=== PATIENT | female | born 1990 | race Asian ===

== ENCOUNTER → 2020-10-21 12:33 | Outpatient (CLI) | payer OTHER, SELFPAY ==
--- NOTE | 2020-10-21 12:40 | DI.US.S_ITS ---
ULTRASOUND OF RIGHT BREAST AND AXILLA: 10/21/2020 CLINICAL: Palpable right breast lump. Comparison is made to exam dated: 10/21/2020 [facility]. Color flow ultrasound of the right breast axilla was performed. Freeman scale images of the real-time examination were reviewed. There is a benign oval normal lymph node with a circumscribed margin in the right axilla. This oval normal lymph node displays fatty hilum. This correlates as palpated. IMPRESSION: BENIGN There is no sonographic evidence of malignancy. The oval normal lymph node is benign. This exam was interpreted at Station ID: [id number]. Electronically Signed By: Ruiz young/chelly:10/21/2020 14:55:12 Ultrasound BI-RADS: 2 Benign
--- NOTE | 2020-10-21 12:40 | DI.US.S_ITS ---
LIMITED ULTRASOUND OF LEFT BREAST- POST-RADIATION THERAPY: 10/21/2020 CLINICAL: Palpable left breast lump. Comparison is made to exam dated: 10/21/2020 [facility]. Real-time ultrasound of the left breast 12-1 o'clock region was performed. Freeman scale images of the real-time examination were reviewed. Dense fibroglandular tissue but no mass is identifed in the patient-indicated palpable area of concern. IMPRESSION: NEGATIVE Dense fibroglandular tissue but no mass is identifed in the patient-indicated palpable area of concern. Recommend clinical follow up. There is no sonographic evidence of malignancy. Follow-up with ACR/ACS guidelines. This exam was interpreted at Station ID: [id number]. Electronically Signed By: Ruiz young/chelly:10/21/2020 14:58:10 letter sent: Clinical Evaluation Ultrasound BI-RADS: 1 Negative
--- NOTE | 2020-10-21 12:40 | DI.MG.S_ITS ---
BILATERAL DIGITAL DIAGNOSTIC MAMMOGRAM 3D/2D: 10/21/2020 CLINICAL: Baseline. Lump in the left breast. Right axillary swelling. No prior exams were available for comparison. The tissue of both breasts is extremely dense, which lowers the sensitivity of mammography. No significant masses, calcifications, or other findings are seen in either breast. IMPRESSION: INCOMPLETE: NEEDS ADDITIONAL IMAGING EVALUATION There is no abnormality seen in the left breast to correspond with the palpable abnormality, however, ultrasound is recommended. There is no abnormality seen in the right axilla to correspond with the palpable abnormality in the right axilla, however, ultrasound is recommended. Targeted ultrasound is recommended for further evaluation, which will be scheduled immediately following this exam. This exam was interpreted at Station ID: [id number]. NOTE: For mammograms, a report in lay terms will be sent to the patient. Approximately 15% of breast malignancies will not be visualized mammographically. In the management of a palpable breast mass, a negative mammogram must not discourage biopsy of a clinically suspicious lesion. Electronically Signed By: Ruiz young/chelly:10/21/2020 14:48:10 ACR BI-RADS Category 0: Incomplete [id number]
== END ==
PROVIDERS: PCP Student in an Organized Health Care Education/Training Program; Referring Provider Student in an Organized Health Care Education/Training Program; Visit Provider Student in an Organized Health Care Education/Training Program
DX: R92.8 Other abnormal and inconclusive findings on diagnostic imaging of breast (principal); N63.21 Unspecified lump in the left breast, upper outer quadrant; N64.4 Mastodynia
CPT/HCPCS: 76642; 77066; G0279